=== PATIENT | male | born 1995 | race Two or more races ===

== ENCOUNTER 2022-07-11 09:57 | Observation (INO) | payer OTHER ==
[2022-07-11] MEDS ORDERED: ACETAMINOPHEN 1000 MG/100 ML BAG IVPB ONE ×3 (10:41→22:26)
[2022-07-11] MEDS ORDERED: ACETAMINOPHEN INJECTION 100 ML IVPB ONE ×2 (11:19→15:17)
[2022-07-11 11:56] LABS: BASO % 0.3 % (0-2.0); EOS % 0.9 % (0-4.5); HEMATOCRIT 47.7 % (35.4-49); HEMOGLOBIN 16.2 GM/dL (11.7-16.9); LYMPH % 14.8 % (8-40); MCH 29.2 pg (25.7-33.7); MEAN CELL VOLUME 85.7 fl (80-96); MONO % 11.1 % (3.8-10.2); NEUT % 72.9 % (42.8-82.8); PLATELET COUNT 212 10^3/uL (134-434); RBC 5.57 M/mm3 (4.00-5.60); RDW 14.1 % (11.9-15.9); WHITE BLOOD COUNT 5.7 K/mm3 (4.0-10.0)
[2022-07-11 12:21] LABS: ALBUMIN 4.4 g/dl (3.4-5.0); BLOOD UREA NITROGEN 8.8 mg/dL (7-18); CALCIUM 9.9 mg/dL (8.5-10.1)
[2022-07-11 12:24] LABS: CREATININE 0.8 mg/dL (0.55-1.3)
[2022-07-11 12:26] LABS: BILIRUBIN,TOTAL 0.8 mg/dL (0.2-1)
[2022-07-11] MEDS ORDERED: ENOXAPARIN NA (PORCINE) 120 MG/0.8 ML DISP.SYRIN SQ ONE (14:30)
[2022-07-11] MEDS: ACETAMINOPHEN 325 MG TABLET (FP) PO PRN (22:20)
[2022-07-11] MEDS: ENOXAPARIN NA (PORCINE) 120 MG/0.8 ML DISP.SYRIN SQ SCH (22:26)
[2022-07-11 23:57] VITALS: RESP 20; BMI 34.5
[2022-07-12] MEDS: ACETAMINOPHEN 325 MG TABLET (FP) PO PRN (06:51)
[2022-07-12 10:19] LABS: HEMATOCRIT 46.3 % (35.4-49); HEMOGLOBIN 15.7 GM/dL (11.7-16.9); MEAN CELL VOLUME 85.1 fl (80-96); PLATELET COUNT 283 10^3/uL (134-434); RBC 5.44 M/mm3 (4.00-5.60)
[2022-07-12 10:30] LABS: BLOOD UREA NITROGEN 7.3 mg/dL (7-18); CALCIUM 9.4 mg/dL (8.5-10.1); MAGNESIUM 1.9 mg/dL (1.8-2.4)
[2022-07-12 10:33] LABS: PHOSPHOROUS 2.8 mg/dL (2.5-4.9)
[2022-07-12 10:34] LABS: CREATININE 0.8 mg/dL (0.55-1.3)
[2022-07-12] MEDS: ENOXAPARIN NA (PORCINE) 120 MG/0.8 ML DISP.SYRIN SQ SCH (10:51)
[2022-07-12 15:38] VITALS: BP 108/64; PULSE 67; TEMP 99
[2022-07-12] MEDS ORDERED: APIXABAN 5 MG TABLET PO SCH (22:00)
== END 2022-07-12 18:52 | disposition home or self-care (01) ==
LOC: JER 09:57 → JERBED 14:34 → INTOOBSV 14:34 → UNDOADMOB 14:34 → JERBED 21:03 → J8W 21:03 → JERBED 07-12 14:40
PROVIDERS: ADMIT Internal Medicine; ATTEND Nurse Practitioner Family
PROC: 3E033NZ Introduction of Analgesics, Hypnotics, Sedatives into Peripheral Vein, Percutaneous Approach (ICD-10-PCS; principal; 2022-07-12)
PROC: 3E023GC Introduction of Other Therapeutic Substance into Muscle, Percutaneous Approach (ICD-10-PCS; 2022-07-12)
DX: I51.89 Other ill-defined heart diseases (principal); I26.93 Single subsegmental thrombotic pulmonary embolism without acute cor pulmonale; R07.89 Other chest pain; R04.2 Hemoptysis; Z86.16 Personal history of COVID-19; E66.8 Other obesity; Z68.34 Body mass index [BMI] 34.0-34.9, adult
CPT/HCPCS: 0241U-QW; 36415; 71046-TC-FY; 71275-TC; 80048; 80053; 83735; 84100; 85025; 85027; 85379; 93005; 93010; 93306-TC; 93970-TC; 96372; 96374; 96375; 96376; 99291; G0378; Q9967

== ENCOUNTER 2022-07-18 01:34 | Emergency (ER) | payer OTHER ==
[2022-07-18 01:48] VITALS: TEMP 98.3; BMI 34.2
[2022-07-18 02:37] LABS: BASO % 0.6 % (0-2.0); EOS % 3.1 % (0-4.5); HEMATOCRIT 44.9 % (35.4-49); HEMOGLOBIN 15.3 GM/dL (11.7-16.9); LYMPH % 27.1 % (8-40); MCH 28.8 pg (25.7-33.7); MCHC 33.9 g/dl (32.0-35.9); MEAN PLT VOLUME 8.8 fl (7.5-11.1); MONO % 9.6 % (3.8-10.2); NEUT % 59.6 % (42.8-82.8); PLATELET COUNT 291 10^3/uL (134-434); RBC 5.29 M/mm3 (4.00-5.60); RDW 13.9 % (11.9-15.9); WHITE BLOOD COUNT 6.3 K/mm3 (4.0-10.0)
[2022-07-18 02:46] LABS: INR 1.54 (0.83-1.09); PROTHROMBIN TIME (PATIENT) 17.8 SEC (9.7-13.0)
[2022-07-18 02:57] LABS: ALBUMIN 4.4 g/dl (3.4-5.0); CALCIUM 9.6 mg/dL (8.5-10.1)
[2022-07-18 02:58] LABS: BLOOD UREA NITROGEN 8.7 mg/dL (7-18)
[2022-07-18 03:02] LABS: BILIRUBIN,TOTAL 0.3 mg/dL (0.2-1)
[2022-07-18] MEDS ORDERED: AZITHROMYCIN 250 MG TABLET PO ONE (04:24)
[2022-07-18] MEDS ORDERED: AZITHROMYCIN 500 MG TABLET ONE (04:46)
[2022-07-18 05:19] VITALS: BP 108/80; PULSE 89; RESP 20
== END 2022-07-18 05:29 | disposition home or self-care (01) ==
LOC: JER 01:34
DX: R91.8 Other nonspecific abnormal finding of lung field (principal)
CPT/HCPCS: 36415; 71275-TC; 80053; 84484; 85025; 85610; 85730; 93005; 93010; 99285-25; Q9967

== ENCOUNTER 2022-10-02 19:18 | Emergency (ER) | payer OTHER ==
[2022-10-02 19:21] VITALS: BP 120/75; PULSE 88; RESP 17; TEMP 99.1; BMI 34.7
[2022-10-02] MEDS ORDERED: ACETAMINOPHEN 1000 MG/100 ML BAG IVPB ONE (20:22)
[2022-10-02] MEDS ORDERED: CEFTRIAXONE 1 GM in DEXTROSE 5%-WATER - 100 ML IVPB ONE (20:22)
[2022-10-02] MEDS ORDERED: DEXAMETHASONE SOD PHOSPHATE 10 MG/1 ML VIAL IVPUSH ONE (20:22)
[2022-10-02] MEDS ORDERED: ACETAMINOPHEN INJECTION 100 ML IVPB ONE (20:37)
[2022-10-02] MEDS ORDERED: DEXAMETHASONE SOD PHOSPHATE 10 MG/1 ML VIAL ONE (20:38)
[2022-10-02] MEDS ORDERED: CEFTRIAXONE 1 GM/50 ML BAG ONE (20:45)
[2022-10-02 20:50] LABS: BASO % 0.3 % (0-2.0); EOS % 1.5 % (0-4.5); HEMATOCRIT 42.1 % (35.4-49); HEMOGLOBIN 14.2 GM/dL (11.7-16.9); LYMPH % 8.5 % (8-40); MCH 28.7 pg (25.7-33.7); MCHC 33.7 g/dl (32.0-35.9); MEAN CELL VOLUME 84.9 fl (80-96); MEAN PLT VOLUME 8.6 fl (7.5-11.1); MONO % 6.8 % (3.8-10.2); NEUT % 82.9 % (42.8-82.8); PLATELET COUNT 222 10^3/uL (134-434); RBC 4.96 M/mm3 (4.00-5.60); RDW 13.9 % (11.9-15.9); WHITE BLOOD COUNT 10.5 K/mm3 (4.0-10.0)
[2022-10-02 21:10] LABS: INR 1.38 (0.83-1.09)
[2022-10-02 21:11] LABS: BLOOD UREA NITROGEN 7.7 mg/dL (7-18); CALCIUM 8.9 mg/dL (8.5-10.1)
[2022-10-02 21:13] LABS: ACTIVATED PTT 36.1 SECONDS (25.2-36.5)
[2022-10-02 21:15] LABS: CREATININE 0.9 mg/dL (0.55-1.3)
== END 2022-10-03 01:50 | disposition home or self-care (01) ==
LOC: JERFT 19:18
PROC: 3E0333Z Introduction of Anti-inflammatory into Peripheral Vein, Percutaneous Approach (ICD-10-PCS; principal; 2022-10-02)
PROC: 3E03329 Introduction of Other Anti-infective into Peripheral Vein, Percutaneous Approach (ICD-10-PCS; 2022-10-02)
PROC: 3E0333Z Introduction of Anti-inflammatory into Peripheral Vein, Percutaneous Approach (ICD-10-PCS; 2022-10-02)
DX: J02.0 Streptococcal pharyngitis (principal); M67.431 Ganglion, right wrist
CPT/HCPCS: 36415; 70491-TC; 80048; 85025; 85610; 85730; 87651; 99284-25; J1100; Q9967

== ENCOUNTER 2023-09-21 02:35 | Emergency (ER) | payer OTHER ==
[2023-09-21 02:44] VITALS: BMI 35.2
[2023-09-21] MEDS ORDERED: ACETAMINOPHEN 500 MG TABLET (FP) ONE (03:09)
[2023-09-21] MEDS: ACETAMINOPHEN 325 MG TABLET (FP) PO ONE (03:10)
[2023-09-21] MEDS ORDERED: KETOROLAC TROMETHAMINE 30 MG/1 ML VIAL ONE (05:59)
[2023-09-21] MEDS: KETOROLAC TROMETHAMINE 30 MG/1 ML VIAL IM ONE (06:07)
[2023-09-21 06:09] VITALS: BP 139/90; PULSE 88; RESP 18; TEMP 98.4
== END 2023-09-21 06:10 | disposition home or self-care (01) ==
LOC: JER 02:35
PROC: 3E0233Z Introduction of Anti-inflammatory into Muscle, Percutaneous Approach (ICD-10-PCS; principal; 2023-09-21)
DX: M25.572 Pain in left ankle and joints of left foot (principal); M25.562 Pain in left knee; R22.42 Localized swelling, mass and lump, left lower limb; R26.2 Difficulty in walking, not elsewhere classified; W00.0XXA Fall on same level due to ice and snow, initial encounter
CPT/HCPCS: 72170-TC-FY; 73552-TC-LT-FY; 73562-TC-LT-FY; 73590-TC-LT-FY; 73610-TC-LT-FY; 73630-TC-LT; 99284-25

== ENCOUNTER 2023-09-27 14:10 | Emergency (ER) | payer OTHER ==
[2023-09-27 14:17] VITALS: BP 130/78; PULSE 91; RESP 19; TEMP 98.6; BMI 34.7
[2023-09-27] MEDS ORDERED: LIDOCAINE 4% PATCH TP ONE (17:21)
== END 2023-09-27 18:19 | disposition home or self-care (01) ==
LOC: JERFT 14:10
DX: I82.442 Acute embolism and thrombosis of left tibial vein (principal); M79.662 Pain in left lower leg; M25.572 Pain in left ankle and joints of left foot; W01.0XXD Fall on same level from slipping, tripping and stumbling without subsequent striking against object, subsequent encounter
CPT/HCPCS: 73590-TC-LT-FY; 73610-TC-LT-FY; 73630-TC-LT; 93971-TC; 99284-25

== ENCOUNTER 2024-05-09 10:19 | Emergency (ER) | payer OTHER ==
[2024-05-09 10:26] VITALS: BP 105/70; PULSE 89; RESP 18; TEMP 98.2; BMI 37.6
[2024-05-09 12:18] LABS: EPI CELLS 7 /uL (0-25.1); HYALINE CASTS 0 /uL (0-3.1); URINE APPEARANCE CLEAR; URINE BACTERIA 25 /uL (0-1359); URINE BILIRUBIN NEGATIVE (NEGATIVE); URINE COLOR YELLOW; URINE GLUCOSE (UA) NEGATIVE (NEGATIVE); URINE KETONE NEGATIVE (NEGATIVE); URINE LEUK ESTERASE TRACE (NEGATIVE); URINE NITRITE NEGATIVE (NEGATIVE); URINE PROTEIN NEGATIVE (NEGATIVE); URINE RBC 8 /uL (0-23.9); URINE UROBILINOGEN 0.2 mg/dL (0.2-1.0); URINE WBC 76 /uL (0-25.8)
[2024-05-09] MEDS ORDERED: cefTRIAXone SODIUM 1 GM VIAL ONE (12:57)
[2024-05-09 16:04] LABS: HIV INTERPRETATION NEGATIVE (NEGATIVE)
== END 2024-05-09 13:06 | disposition home or self-care (01) ==
LOC: JER 10:19
DX: N50.812 Left testicular pain (principal); N45.1 Epididymitis; N43.3 Hydrocele, unspecified
CPT/HCPCS: 36415; 76870-TC; 81003; 86780; 86803; 87086; 87389; 87491; 87591; 99284-25